=== PATIENT | female | born 1965 | race Caucasian/White ===

== ENCOUNTER 2017-12-11 08:14 | Observation (INO) ==
--- NOTE | 2017-12-11 10:19 | Progress Note ---
[facility] Anesthesia Checklist - Patient Identification Patient Identification: Arm Band, Verbal (Name & ) - Structural Data Admitted From: Home Planned Operative Procedure/s: many Consent for Planned Operative Procedure(s) Verified: Yes Verified Documents: Surgical Consent, History and Physical - NPO Status Verified Time NPO: 00:00 - Chart Verification Results Verified: CBC, BMP - Additional verifications Patient : No Anesthesia Reactions: No Hx Blood Transfusions: No Blood Transfusion Reaction: No Cephalosporin Allergy: No Previous Colonoscopy: No - Cardiovascular Assessment Heart Sounds: S1 & S2 Pulse Strength: Baseline Pulse Rhythm: Regular Peripheral Edema: No - Airway Assessment C-Spine Mobility Assessed: Yes TMJ Mobility Assessed: Yes Dentition: Good Dentition - Neurological Assessment Level of Consciousness: Awake, Alert, Appropriate Hx Seizures: No Numbness or tingling in extremities: No - Anesthesia Plan Anesthesia Risk discussed: Yes Anesthesia Plan: Verified ASA Class: III Anesthesia Type: General [facility] Anesthesia HX I have reviewed the patient's past medical history: Yes Medical History: Reports:: Anxiety, Cerebrovascular Accident, Depression, Gastroesophageal Reflux Disease(GERD), Hypertension Denies:: Cancer, Diabetes Mellitus Type 1, Diabetes Mellitus Type 2, MRSA, Seizures Other Medical History: Reports: Other. Denies: Blood Transfusion Reaction Laterality Cases: Left: Arthroscopy Shoulder Other Surgeries: Yes: Cholecystectomy, Hysterectomy-Total Amputation: No Fractures: Yes *Family Hx:: Coronary Artery Disease, Diabetes, Heart Attack, Hyperlipidemia, Hypertension, Kidney Disease
--- NOTE | 2017-12-11 17:14 | Progress Note ---
[facility] Anesthesia Record Part II Discharge Time: 17:40 Destination: floor PACU nurse assessment reviewed?: Yes Patient Condition:: Good Anesthesia Complications:: None
--- NOTE | 2017-12-11 17:14 | Progress Note ---
[facility] Anesthesia Record Part I Intake, IV Amount: 2,300 Estimated blood loss (mL): 50 Urine output (mL): 800 Blood Pressure: 132/88 SaO2: 96 Pulse Rate: 98 Respiratory Rate: 12 Temperature: 98 F Patient is:: Awake, Stable Stable to PACU at:: 17:10
--- NOTE | 2017-12-11 17:30 | Operative Note ---
Date of procedure: 12/11/17 Pre-op Diagnosis:: 1. Right talus OCD 2. Right talus fracture with possible AVN 3. Right deltoid ligament tear 4. Right ankle synovitis Post-op Diagnosis:: Same Procedure performed:: 1. Right medial malleolus cutdown osteotomy (with ORIF medial malleolus) 2. Right debridement of talus OCD 3. Right allograft talus, open repair of talus fracture 4. Right primary open deltoid ligament repair 5. Right ankle arthrotomy 6. Right ankle synovectomy Surgeon:: Michelle Peterson DPM Inspection And Testing Supervisor(s):: Dr. Pradeep Hyatt MD Anesthesia: regional, LMA Estimated blood loss (mL): 40 Clinical Note:: Right Talus OCD, fracture pre-op: X-rays evaluated by myself. No report given. 3 views of right ankle from and 09/06/17 show right medial talar defect. The MRI right ankle from 08/08/17 reviewed by myself, no report sent. The MRI shows a posterior medial talus, not contained osteochondral defect, with evidence of edema possibly from a fracture of the medial talar dome extending into the shoulder. X-rays, MRI reviewed and discussed with the patient. Conservative treatment discussed has failed x 4 months with worsening pain and symptoms affecting her ability to work and exercise. Continue the fracture boot but further conservative care not curative. We discussed surgery. We discussed in detail debridement and microfracture of the osteochondral defect , and open reduction internal fixation of the old talus fracture. We discussed doing a medial malleolar osteotomy to gain access to the posterior medial lesion. We discussed an ankle scope alone would not provide enough access to the lesion. We did discuss AVN in detail and if this surgery is unsuccessful a second surgery could be performed using either a cadaver talus, beto-talar arthroplasty, custom talus could be considered. We also discussed salvage procedure would include possibly a total ankle replacement versus arthrodesis. Patient's questions were answered. All risks and benefits were discussed including but not limited to: damage to blood vessels and nerves, bleeding, infection, wound complications, delayed, mal or non-union of bone, AVN, post-traumatic arthritis, need for further surgery, need for removal of implant, prolonged swelling of the extremity, prolonged pain, CRPS/RSD, DVT, and anesthetic complications. No guarantees were given. All questions fully answered. The patient verbalized understanding and agreed to proceed with surgery. Consent was obtained. Necessary labs and pre-op testing ordered: CBC, CMP, EKG, CXR. Need medical clearance per Dr. Ousmane Solares. Plan to keep patient for 23 hour observation for pain control (patient lives 3.5 hours away and is moving to [place], [place]). Patient has a fracture boot. She has a walker at home. I recommend she get a rolling knee scooter. Plan surgery for Wedn 12/05/17: Autograft bone harvest, medial malleolar osteotomy, microfracture and debridement of osteochondral defect, open reduction internal fixation talus (possible gastroc recession and ankle arthroscopy) Operative findings:: Attenuated deltoid ligament with partial tear. Synovitis and scar tissue noted in the ankle joint. Spongy talar cartilage with erosion and osteochondral defect noted greater than 1.5 cm. Talus bone marrow edema. Operative note:: On this date and time patient was deemed an appropriate surgical candidate. Pre- op regional popliteal nerve block performed by anesthesia. With informed consent signed, the patient was taken to the operating theater. The patient was positioned supine. General anesthesia was induced. Tourniquet was applied to the right thigh. The right lower extremity was prepped and draped in normal sterile fashion. 1. Right medial malleolus cutdown osteotomy (with ORIF medial malleolus) 2. Right debridement of talus OCD 3. Right allograft talus, open repair of talus fracture 4. Right primary open deltoid ligament repair 5. Right ankle arthrotomy 6. Right ankle synovectomy Right ankle arthrotomy: Attention was directed to the lateral ankle where intra-op fluoroscopy was utilized to edwin anatomical landmarks. A linear incision was made over the lateral ankle gutter. Dissection was carried thru skin and subcutaneous tissue with care taken to maintain surgical hemostasis and safely retract neurovascular structures. Dissection was then carried thru deep fascia to bone. There was blood and synovitis noted in the lateral ankle gutter. No damage to the lateral talar dome. Right ankle synovectomy: There was scar tissue and synovitis noted in the ankle joint. It was debrided and the wound was flushed with copious amounts normal sterile saline. 3-0 Vicryl was then used to reapproximate the subcutaneous layer in an interrupted fashion. 3-0 Nylon was used to reapproximate the skin in an interrupted mattress fashion. Right medial malleolus cutdown osteotomy (with ORIF medial malleolus): Attention was then directed to the medial ankle where intraoperative fluoroscopy was used to edwin out anatomic landmarks. Dissection was carried down over the medial malleolus extending inferiorly and curving over the talus. Dissection was carried through skin and subcutaneous tissue with care taken to maintain surgical hemostasis and safely retract neurovascular structures. Dissection was carried down in a layered fashion through the deep fascia to the bone. The medial malleolus was exposed. A right medical plate was inserted over the medial malleolus and to guidewires for 4.0 millimeter screws were inserted into the medial mall as pre-drill holes for later reapproximation of the tibia. Under intraoperative fluoroscopy the osteotomy site was marked out. The plate was removed. Utilizing saw the osteotomy was cut from superior medial to inferior anterior lateral. Osteotome and mallet was then used to pry the medial malleolus forward removing soft tissue attachments. The medial malleolus was induced to allow for exposure of the talus. Right debridement of talus OCD: There was a osteochondral defect noted on the posterior medial aspect of the talar dome. There were several areas of spongy cartilage with defect noted. Utilizing a 15 blade the spongy cartilage was sharply debrided. The osteochondral defect was fully exposed utilizing curettes. Damaged articular cartilage was removed. The wound was flushed with copious amounts normal sterile saline. Right allograft talus, open repair of talus fracture: At this point intraoperative fluoroscopy was compared with preop CT and MRI. There was a large amount of bone marrow edema underneath the OCD. A drill was used to core down through the osteochondral defect. Hydroset XT was used as a bone void filler to fill in the area of bone marrow edema. This was allowed to harden. Fibrin glue was then applied over the area to seal the Hydroset. Once dry, the Prochondrix CR 17mm graft was measured and cut to size, ~1.5cm and applied into the OCD talus. Fibrin glue was then used to seal the graft in place. Once the graft was firmly adhered in place the wound was flushed with copious amounts of normal sterile saline. Right medial malleolus cutdown osteotomy (with ORIF medial malleolus): At this point attention was directed back to the hinged medial malleolus which was put back in anatomical alignment. The guidewires for the 4.0 millimeters screws was advanced to confirm alignment of the tibia. The right [facility] anatomic medial malleolus plate was then inserted. In standard technique, 3.5 mm locking and nonlocking screws were inserted. There was a small ovoid on the tibia where the osteotomy had been performed. Vitoss was then used as a bone filler to fill in the tibial gap. Once the area was hardened the wound was flushed copious amounts of normal sterile saline. 0-0 and 2-0 Vicryl was then utilized to reapproximate the deep issue in a running fashion. Amnio graft was inserted over the exposed med mall plate. 3-0 Vicryl was then used to reapproximate the subcutaneous layer in an interrupted suture fashion. Right open primary deltoid tear: At this point the deltoid ligament was identified. It was intact but partially torn and attenuated. A 15 blade was used to clean up the scar tissue. Next 2- 0 Vicryl was used to reinforce and repair the deltoid ligament. The wound was flushed with copious amounts of normal sterile saline. Intraoperative fluoroscopy was utilized to check post-reduction AP and lateral views. An external stress test performed. No gross instability, medial clear space or syndesmotic widening. Negative anterior drawer. The wound was flushed with copious amounts normal sterile saline. 2-0 Vicryl was then utilized to reapproximate the deep issue in a running fashion. 3-0 Vicryl was then used to reapproximate the subcutaneous layer in an interrupted fashion. 3-0 Nylon was used to reapproximate the skin in an interrupted mattress fashion. The tourniquet was deflated at 150 minutes and immediate hyperemic response was noted to the digits. The wounds were cleansed. Xerofoam, dry sterile dressing was then applied followed by a below knee modifed Nichole posterior splint. The patient was awoken from anesthesia and transfer to recovery with vital signs stable and neurovascular status intact. Materials: Prochondrix CR graft (talus) Christin Hydroset XT (bone void filler) [place] Vitoss 2.5cc (tibia bone filler) [facility] medial malleolus plate, 3.5mm locking screw x 7, 3.5mm non locking screw x 1 Amnio graft 2 Discharge/Plan: Admit for 23 hour observation for pain control, med mgmt blood pressure. Patient is to maintain splint clean dry and intact. Polar pack/ice behind the knee and elevate on foam ramp or two pillows. Non weight bearing with crutches and walker. Rx given for [place] 7.5, Zofran, Lovenox, Motrin 800mg. Obtain post op films, 3 views ankle. Follow up in one week. Tourniquet time (min): 150 Condition: stable Disposition: observation Specimens:: Right talus cartilage Complications:: None
--- NOTE | 2017-12-11 19:31 | History & Physical Report ---
*Admission Date: 12/11/17 *Chief complaint: Right talus OCD *History of present illness: Mrs. Stover is a 52-year-old female who presents for post op admission of surgery 12/11/17. Patient states June 2017 she was at work and had a misstep. Patient failed conservative care with her steam trap man Dr. Emery was referred to for surgical evaluation. Advanced imaging including x- ray, MRI and CT revealed a osteochondral defect of the talus. Patient underwent surgery today. She lives in [facility] over 5 hours away and was admitted for postop pain control and medical management of her blood pressure. [facility] History I have reviewed the patient's past medical history: Yes Medical History: Reports:: Anxiety, Cerebrovascular Accident, Depression, Gastroesophageal Reflux Disease(GERD), Hypertension Denies:: Cancer, Diabetes Mellitus Type 1, Diabetes Mellitus Type 2, MRSA, Seizures Other Medical History: Reports: Other. Denies: Blood Transfusion Reaction Laterality Cases: Left: Arthroscopy Shoulder Other Surgeries: Yes: Cholecystectomy, Hysterectomy-Total Amputation: No Fractures: Yes - *Social History Educational Level: Completed College Smoking Status: Never smoker Alcohol Intake: current Alcohol Intake Frequency:: holidays/special occasions only Occupational Status: employed Housing: house Household Members: spouse - Psychiatric History Expresses thoughts of harming self/others: None Suicide Plan Description: No Plan Pschychiatric History:: Reports:: Anxiety, Depression *Family Hx:: Coronary Artery Disease, Diabetes, Heart Attack, Hyperlipidemia, Hypertension, Kidney Disease Review of Systems - Review of Systems Review of systems:: pertinent systems reviewed and negative unless documented below - Constitutional Denies anorexia - Eyes Denies blurry vision - ENT Denies abnormal hearing - *Cardiovascular Denies chest pain, Denies shortness of breath - *Respiratory Denies shortness of breath - *Gastrointestinal Denies abdominal pain - *Genitourinary Denies abnormal periods - *Musculoskeletal Reports joint swelling, Reports limited joint movement (right ankle) - Integumentary/Breasts Denies hair loss - *Neurologic Denies abnormal walking, Denies abnormal movements - Psychiatric Reports anxiety - Allergic/Immunologic Reports GI upset with certain foods Meds Home Medications Medication Instructions Recorded Confirmed Type escitalopram 20 mg tablet 20 mg PO ONCE 18 12/11/17 History levocetirizine 5 mg tablet 5 mg PO QHS 0712/11/17 History losartan 100 1 tab PO DAILY 11/06/17 12/11/17 History mg-hydrochlorothiazide 12.5 mg tablet pantoprazole 40 mg tablet,delayed 40 mg PO HS 11/06/17 12/11/17 History release ranitidine 300 mg capsule 300 mg PO BID 11/06/17 12/11/17 History tizanidine 4 mg capsule 4 mg PO TID PRN 11/06/17 12/11/17 History Ergocalciferol (Vitamin D2) 400 unit PO DAILY 12/10/17 12/10/17 History [Vitamin D] Ibuprofen [Ibuprofen 800mg Tab] 800 mg PO Q8HP PRN 12/10/17 12/10/17 History Lysine HCl [l-Lysine] 500 mg PO DAILY 12/10/17 12/11/17 History Docusate Calcium 240 mg PO DAILY 12/11/17 12/11/17 History Allergies Allergy/AdvReac Type Severity Reaction Status Date / Time duloxetine [From Cymbalta] Allergy Verified 12/11/17 09:46 Penicillins Allergy Verified 12/11/17 09:46 Exam Vital signs and Labs for Last 24 Hours: Temp Pulse Resp BP Pulse Ox 98.0 F 84 18 151/79 96 12/11/17 18:08 12/11/17 18:08 12/11/17 18:08 12/11/17 18:08 12/11/17 18:08 I & O for Last 24 hours: Intake & Output 12/09/17 12/10/17 12/11/17 12/12/17 11:59 11:59 11:59 11:59 Intake Total 2375 / 2375 Balance 2375 / 2375 Weight 235 lb 236 lb 9 oz - *Routine HEENT Exam Head: Present: normocephalic Eye: Present: PERRL ENT: Present: mucous membranes moist - *Routine Neck Exam Present: supple, full ROM - *Routine Respiratory Exam Present: CTA bilaterally - *Routine Cardiovascular Exam Present: RRR, Normal S1, Normal S2 - *Routine Abdominal Exam Present: soft. Absent: distended, guarding - *Routine Rectal Exam Patient deferred: visual exam - *Routine Exam Patient deferred: external exam - *Routine Extremities Exam Present: pulses intact, normal capillary refill. Absent: edema, calf tenderness - *Routine Skin Exam Present: intact. Absent: erythema, pallor - *Routine Neurological Exam Present: alert, oriented X3, moving all extremities - Detailed Lower Extremity Exam Comments: Posterior splint clean dry and intact to the right lower extremity. No calf or thigh pain noted bilaterally. Capillary fill time within normal limits. Palpable pedal pulses. Skin temperature within normal limits. Decreased light touch sensation secondary to regional block. Decreased motor function secondary to block. Assessment and Plan (1) Osteochondritis dissecans of right talus Current visit: Yes Status: Acute Category: Medical Code(s): M93.271 - Osteochondritis dissecans, right ankle and joints of right foot (2) Right ankle pain Current visit: Yes Status: Acute Category: Medical Code(s): M25.571 - Pain in right ankle and joints of right foot (3) Synovitis of right ankle Current visit: Yes Status: Acute Category: Medical Code(s): M65.9 - Synovitis and tenosynovitis, unspecified - Assessment and plan all Dx Assessment and Plan for all problems:: S/p right medial malleolar cutdown osteotomy (with ORIF medial mall), debridement of talus OCD, graft of talus, ankle synovectomy DOS: 12/11/17 Patient seen and evaluated postoperatively. Patient is resting comfortably in bed with no new complaints. 1. Plan for discharge tomorrow morning 2. Patient has crutches, rolling the scooter 3. Nonweightbearing to right lower extremity, maintain splint clean dry and intact to the RLE 4. Plan for 1 session of PT for gait training prior to discharge in the morning 5. Patient education and DVT prophylaxis for Lovenox 6. Rx [place] 7.5 on chart 7. e-Rx Zofran, Motrin, Lovenox 8. Incentive spirometer and Cryo/Cuff education 9. Plan to see patient in the a.m
[2017-12-12 06:33] LABS: Anion Gap 7.8 mEq/L (5-15); Bilirubin,Total 0.4 mg/dL (0.2-1.0); Calcium 7.9 mg/dL (8.5-10.1); Globulin 3.1 gm/dl (1.3-3.2); Potassium 3.8 mmoL/L (3.5-5.1); Total Protein,Serum 6.1 gm/dL (6.4-8.2)
--- NOTE | 2017-12-12 07:11 | Pharmacy Consult Notes ---
[facility] Pharmacy VTE Monitoring - Patient Demographics Admission date: 12/11/17 Report Date: 12/12/17 Time: 07:10 Allergies/Adverse Reactions: Patient Allergies duloxetine [From Cymbalta] Allergy (Verified 12/11/17 09:46) Penicillins Allergy (Verified 12/11/17 09:46) Height: 1.73 m Weight: 107.303 kg Patient Problems: Current Active Problems Osteochondritis dissecans of right talus (Acute) Right ankle pain (Acute) Synovitis of right ankle (Acute) - VTE Risk Labs: VTE Related Lab Results BUN 8 mg/dL (7-18) 12/12/17 05:22 Creatinine 0.73 mg/dL (0.55-1.02) 12/12/17 05:22 Estimated Creat Clear 156 mL/min (0-300) 12/12/17 05:22 Was VTE Risk Assessment Performed: Yes VTE Score: 2 VTE Risk Level: Very Low Risk Clinical Trial Participant: No - Prophylaxis VTE Prophylaxis Ordered?: Yes Types of VTE Prophylaxis: Pharmacological Pharmacologic Type: Enoxaparin
[2017-12-12 07:49] VITALS: BP 108/72
--- NOTE | 2017-12-12 08:19 | Consult Report ---
*Admission Date: 12/11/17 *Chief complaint: Consultation for hypertension *History of present illness: Mrs. Stover is a 52-year-old female who presents for post op admission of surgery 12/11/17. Patient states June 2017 she was at work and had a misstep. Patient failed conservative care with her design technology teacher Dr. Emery was referred to for surgical evaluation. Advanced imaging including x- ray, MRI and CT revealed a osteochondral defect of the talus. Patient underwent surgery today. She lives in [facility] over 5 hours away and was admitted for postop pain control and medical management of her blood pressure. Patient has a long-standing history of hypertension, has been on angiotensin receptor geno/HCTZ combination therapy for quite a while. [facility] History I have reviewed the patient's past medical history: Yes Medical History: Reports:: Anxiety, Cerebrovascular Accident, Depression, Gastroesophageal Reflux Disease(GERD), Hypertension Denies:: Cancer, Diabetes Mellitus Type 1, Diabetes Mellitus Type 2, MRSA, Seizures Other Medical History: Reports: Other. Denies: Blood Transfusion Reaction Laterality Cases: Left: Arthroscopy Shoulder Other Surgeries: Yes: Cholecystectomy, Hysterectomy-Total Amputation: No Fractures: Yes - *Social History Educational Level: Completed College Smoking Status: Never smoker Alcohol Intake: current Alcohol Intake Frequency:: holidays/special occasions only Occupational Status: employed Housing: house Household Members: spouse - Psychiatric History Expresses thoughts of harming self/others: None Suicide Plan Description: No Plan Pschychiatric History:: Reports:: Anxiety, Depression *Family Hx:: Coronary Artery Disease, Diabetes, Heart Attack, Hyperlipidemia, Hypertension, Kidney Disease Review of Systems - Review of Systems Review of systems:: pertinent systems reviewed and negative unless documented below - Constitutional Denies anorexia, Denies body ache(s), Denies chills - Eyes Denies blind spots - ENT Denies abnormal hearing, Denies bleeding gums, Denies change in voice - *Cardiovascular Denies chest pain, Denies chest pain at rest, Denies chest pain with activity, Denies shortness of breath, Denies shortness of breath with activity, Denies irregular heart rhythm, Denies shortness of breath when lying down - *Respiratory Denies change in phlegm color, Denies chest congestion, Denies cough - *Gastrointestinal Denies abdominal pain - *Neurologic Denies abnormal walking, Denies abnormal hearing, Denies abnormal movements Meds Home Medications Medication Instructions Recorded Confirmed Type escitalopram 20 mg tablet 20 mg PO ONCE 11/06/17 12/11/17 History levocetirizine 5 mg tablet 5 mg PO QHS 11/06/17 12/11/17 History losartan 100 1 tab PO DAILY 11/06/17 12/11/17 History mg-hydrochlorothiazide 12.5 mg tablet pantoprazole 40 mg tablet,delayed 40 mg PO HS 11/06/17 12/11/17 History release ranitidine 300 mg capsule 300 mg PO BID 11/06/17 12/11/17 History tizanidine 4 mg capsule 4 mg PO TID PRN 11/06/17 12/11/17 History Ergocalciferol (Vitamin D2) 400 unit PO DAILY 12/10/17 12/10/17 History [Vitamin D] Ibuprofen [Ibuprofen 800mg Tab] 800 mg PO Q8HP PRN 12/10/17 12/10/17 History Lysine HCl [l-Lysine] 500 mg PO DAILY 12/10/17 12/11/17 History Docusate Calcium 240 mg PO DAILY 12/11/17 12/11/17 History Allergies Allergy/AdvReac Type Severity Reaction Status Date / Time duloxetine [From Cymbalta] Allergy Verified 12/11/17 09:46 Penicillins Allergy Verified 12/11/17 09:46 Exam Vital signs and Labs for Last 24 Hours: Temp Pulse Resp BP Pulse Ox 97.7 F 71 18 108/72 99 12/12/17 07:47 12/12/17 07:47 12/12/17 07:47 12/12/17 07:47 12/12/17 07:47 Laboratory Results - last 24 hr 12/12/17 05:22: Sodium 137, Potassium 3.8, Chloride 104, Carbon Dioxide 29, Anion Gap 7.8, BUN 8, Creatinine 0.73, Estimated Creat Clear 156, Estimated GFR 84, Est GFR ( Amer) 102, Glucose 156 H, Calcium 7.9 L, Total Bilirubin 0.4, AST 26, ALT 40, Alkaline Phosphatase 88, Total Protein 6.1 L, Albumin 3.0 L , Globulin 3.1, Albumin/Globulin Ratio 1.0 L I & O for Last 24 hours: Intake & Output 12/09/17 12/10/17 12/11/1718 11:59 11:59 11:59 11:59 Intake Total 3155 / 3155 Output Total 2700 / 2700 Balance 455 / 455 Weight 235 lb 236 lb 9 oz Narrative: Oropharynx clear, patient's alert, oriented. No cranial nerve deficits. Lungs are clear, heart rate regular. No edema. Foot damp per podiatry. Internal Medicine - CN: Reslt - Labs CBC & Chem 7: 12/12/17 05:22 Labs: BMP 12/12/17 05:22 Sodium 137 Potassium 3.8 Chloride 104 Carbon Dioxide 29 BUN 8 Creatinine 0.73 Glucose 156 H Calcium 7.9 L Liver Function 12/12/17 Range/Units 05:22 Total Bilirubin 0.4 (0.2-1.0) mg/dL AST 26 (15-37) U/L ALT 40 (12-78) U/L Alkaline Phosphatase 88 (46-116) U/L Albumin 3.0 L (3.4-5.0) gm/dL Assessment and Plan (1) Osteochondritis dissecans of right talus Current visit: Yes Status: Acute Category: Medical Code(s): M93.271 - Osteochondritis dissecans, right ankle and joints of right foot (2) Right ankle pain Current visit: Yes Status: Acute Category: Medical Code(s): M25.571 - Pain in right ankle and joints of right foot (3) Synovitis of right ankle Current visit: Yes Status: Acute Category: Medical Code(s): M65.9 - Synovitis and tenosynovitis, unspecified (4) Hypertension Current visit: Yes Status: Acute Category: Medical Code(s): I10 - Essential (primary) hypertension Minimal elevations in blood pressure postoperatively from pain issues. Now is well controlled. No objection to discharge home. Would not change any blood pressure regimen at this point.
--- NOTE | 2017-12-12 08:24 | Discharge Summary ---
General - General Admission date:: 12/11/17 Discharge date: 12/12/17 HPI HPI: Mrs. Stover is a 52-year-old female who presents for post op admission of surgery 12/11/17. Patient states June 2017 she was at work and had a misstep. Patient failed conservative care with her laboratory technologist Dr. Emery was referred to for surgical evaluation. Advanced imaging including x- ray, MRI and CT revealed a osteochondral defect of the talus. Patient underwent surgery today. She lives in [facility] over 5 hours away and was admitted for postop pain control and medical management of her blood pressure. Patient has a long-standing history of hypertension, has been on angiotensin receptor geno/HCTZ combination therapy for quite a while. Hospital Course Hospital Course: Patient was admitted 12/11/17 for postop pain control and blood pressure management after surgery. Hospital course uneventful. Fluid intake and output within normal limits. Blood pressure well controlled throughout postop course. Pain control with regional block. Objective Vital signs: Temp Pulse Resp BP Pulse Ox 97.7 F 71 18 108/72 99 12/12/17 07:47 12/12/17 07:47 12/12/17 07:47 12/12/17 07:47 12/12/17 07:47 - *Routine HEENT Exam Head: Present: normocephalic Eye: Present: PERRL ENT: Present: mucous membranes moist - *Routine Neck Exam Present: supple. Absent: JVD - *Routine Respiratory Exam Present: CTA bilaterally - *Routine Cardiovascular Exam Present: RRR - *Routine Abdominal Exam Present: soft. Absent: tenderness - *Routine Rectal Exam Patient deferred: visual exam - *Routine Exam Patient deferred: external exam - *Routine Extremities Exam Present: cyanosis, normal capillary refill. Absent: calf tenderness - *Routine Skin Exam Present: intact - *Routine Neurological Exam Present: alert, oriented X3, CN II-XII intact - Detailed Lower Extremity Exam Comments: Splint clean dry and intact to the right lower knee. Capillary fill time within normal limits. Motor function decreased secondary to regional block. Touch sensation not at baseline decreased secondary to regional block. No calf or thigh pain noted bilaterally. Skin temp and color within normal limits. Results Labs on day of discharge: Labs from last 24 hours 12/12/17 05:22 Sodium 137 Potassium 3.8 Chloride 104 Carbon Dioxide 29 Anion Gap 7.8 BUN 8 Creatinine 0.73 Estimated Creat Clear 156 Estimated GFR 84 Est GFR ( Amer) 102 Glucose 156 H Calcium 7.9 L Total Bilirubin 0.4 AST 26 ALT 40 Alkaline Phosphatase 88 Total Protein 6.1 L Albumin 3.0 L Globulin 3.1 Albumin/Globulin Ratio 1.0 L DS: Diagnosis - Discharge Diagnosis (1) Osteochondritis dissecans of right talus Status: Acute (2) Right ankle pain Status: Acute (3) Synovitis of right ankle Status: Acute (4) Hypertension Status: Acute Discharge Plan - Patient Discharge Instructions ACTIVITY: Continue current activity, Up with assistance DIET: advance to your usual diet Additional Instructions: Patient is to maintain dressing clean dry and intact. Ice (cryo cuff polar pack) behind the right knee and elevate on two pillows. Non weight bearing to the right lower extremity with DME assistance (walker, rolling knee scooter). Continue incentive spirometer q1h. Rx for Trosper 7.5/25 on chart. e-Rx given for Lovenox, Zofran and Motrin 800mg. Follow up in one week as scheduled - Follow up Plan Follow up with: Michelle Peterson DPM [Staff Physician] - Disposition: Home, Self-Long Term Medications: Home Medications Medication Instructions Recorded Confirmed Type escitalopram 20 mg tablet 20 mg PO ONCE 11/06/17 12/11/17 History levocetirizine 5 mg tablet 5 mg PO QHS 11/06/17 12/11/17 History losartan 100 1 tab PO DAILY 11/06/17 12/11/17 History mg-hydrochlorothiazide 12.5 mg tablet pantoprazole 40 mg tablet,delayed 40 mg PO HS 11/06/17 12/11/17 History release ranitidine 300 mg capsule 300 mg PO BID 11/06/17 12/11/17 History tizanidine 4 mg capsule 4 mg PO TID PRN 11/06/17 12/11/17 History Ergocalciferol (Vitamin D2) 400 unit PO DAILY 12/10/17 12/10/17 History [Vitamin D] Ibuprofen [Ibuprofen 800mg Tab] 800 mg PO Q8HP PRN 12/10/17 12/10/17 History Lysine HCl [l-Lysine] 500 mg PO DAILY 12/10/17 12/11/17 History Docusate Calcium 240 mg PO DAILY 12/11/17 12/11/17 History Prescriptions/Medication Reconciliation: No Action losartan 100 mg-hydrochlorothiazide 12.5 mg tablet 1 tab PO DAILY pantoprazole 40 mg tablet,delayed release 40 mg PO HS ranitidine 300 mg capsule 300 mg PO BID tizanidine 4 mg capsule 4 mg PO TID PRN PRN Reason: pain ondansetron HCl 4 mg tablet 4 mg PO Q6H PRN #30 tab PRN Reason: nausea enoxaparin 40 mg/0.4 mL subcutaneous syringe 40 mg SUB-Q QDAY 20 Days #8 ml ibuprofen 800 mg tablet 800 mg PO BID #60 tab escitalopram 20 mg tablet 20 mg PO ONCE levocetirizine 5 mg tablet 5 mg PO QHS Lysine HCl [l-Lysine] 500 mg PO DAILY Ibuprofen [Ibuprofen 800mg Tab] 800 mg PO Q8HP PRN PRN Reason: Moderate Pain Ergocalciferol (Vitamin D2) [Vitamin D] 400 unit PO DAILY Docusate Calcium 240 mg PO DAILY
== END 2017-12-12 11:20 | disposition home or self-care (01) ==
LOC: 2ND 08:14 → OR 08:14
PROVIDERS: ADMIT Podiatrist; ATTEND Podiatrist

== ENCOUNTER → 2018-06-25 15:44 | Outpatient (CLI) | payer SELFPAY ==
--- NOTE | 2018-06-25 15:47 | XR_ITS ---
XR ankle wt bearing RT min 3V HISTORY: Follow-up surgery, postop ankle pain ITS.REASON: post-op ORDERING PHYSICIAN: Michelle Peterson DPM PATIENT AGE: 52 years COMPARISON is made to multiple outside exams the last of which dates 03/26/2018: FINDINGS: There is a medial bone plate along the distal tibia transfixed by multiple screws. There is an oblique fracture of the distal tibia nondisplaced. Fracture line is more prominent along the lateral aspect. Mild prominent zone of lucency around the third from top tibial bone plate screw which could be related to some underlying loosening or infection. A longitudinal area of sclerosis is noted along the medial aspect of the talus. A mixed area of lucency with sclerosis is present along the medial aspect of the talar dome suggesting an osteochondral defect with possible bone graft. Please correlate with patient's surgical history. There is some bony bridging between the distal tibia and fibula. IMPRESSION: 1. Postsurgical changes with possible loosening or infection of the third from top tibial bone plate screw 2. Ununited distal tibial fracture laterally. 3. Suspect prior bone graft of an osteochondral defect of the talar dome medially
== END ==
PROVIDERS: Visit Provider Podiatrist
DX: Z98.890 Other specified postprocedural states (principal)
CPT/HCPCS: 73610

== ENCOUNTER → 2018-09-03 13:46 | Outpatient (CLI) | payer SELFPAY ==
--- NOTE | 2018-09-03 13:54 | XR_ITS ---
XR ankle wt bearing RT min 3V HISTORY: Follow-up surgery ITS.REASON: post-op ORDERING PHYSICIAN: Michelle Peterson DPM PATIENT AGE: 53 years Comparison: 06/25/2018 FINDINGS: Status post ORIF distal tibia with medial bone plate. There is persistent fracture line oblique in nature with the fracture line most prominent laterally and anteriorly consistent with incomplete bony union. There is prominent callus formation however, fracture line is still visible. There is a zone of lucency around the third screw from the top is somewhat less apparent on today's exam. IMPRESSION: Increasing callus formation but persistent fracture line visible status post ORIF distal tibia as described above.
== END ==
PROVIDERS: Visit Provider Podiatrist
DX: Z98.890 Other specified postprocedural states (principal)
CPT/HCPCS: 73610

== ENCOUNTER → 2018-11-26 12:15 | Outpatient (CLI) | payer SELFPAY ==
--- NOTE | 2018-11-26 12:17 | CT_ITS ---
CT ankle RT wo con INDICATION: Continued pain and swelling medially, delayed union, peroneal tendinitis, [place] tendinitis, ankle instability, osteochondritis dissecans, chronic pain ITS.REASON: pain ORDERING PHYSICIAN: Michelle Peterson DPM PATIENT AGE: 53 years COMPARISON: None TECHNIQUE: Contrast Used: Oral Contrast: Axial images were obtained. Sagittal and coronal reformatted images are reviewed as well. All CT scans at the facility use one or more dose reduction, viz: automated exposure control, ma/kV adjustment per patient size (including targeted exams where dose is matched to indication, i.e. head), or iterative reconstruction technique. FINDINGS: Status post prior placement of lateral bone plate along the distal tibia medially. With osteotomy noted at the distal tibia. There is persistent lucency along the lateral aspect of the osteotomy site and along the articular surface of the distal tibia laterally with the osteotomy extending into the articular surface of the distal tibia laterally. Multiple screws are present stabilizing a medial bone plate. The posterior screw second up from the distal aspect of the tibia does appear to extend just to the subarticular region of the distal tibia with a small fracture line extending into the articular surface at the tip of the screw. Just lateral to this there is an additional small fracture line which involves the articular surface of the distal tibia. As along the anterior aspect of the distal tibia. There are mild osteoarthritic changes of the tibiotalar joint. There is an old defect of the talar dome has hyperdensity within the defect consistent with prior surgery and bone cement placement for the area of osteonecrosis. Air is a nondisplaced somewhat comminuted fracture of the articular surface of the distal tibia centrally and laterally. Small ankle joint effusion. IMPRESSION: 1. Prior ORIF with osteotomy of the distal tibia with bone cement at the previous area of osteonecrosis of the talar dome with some irregularity of the talar dome at this region. The osteotomy has incompletely healed laterally. 2. There is a nondisplaced comminuted fracture involving the articular surface of the distal tibia centrally and laterally extending into the ununited osteotomy site 3. One of the screws in the medial bone plate does appear to extend to the articular surface of the distal tibia. 4. Mild osteoarthritic changes of the ankle joint small ankle joint effusion IMPRESSION:
== END ==
PROVIDERS: Visit Provider Podiatrist
DX: M25.571 Pain in right ankle and joints of right foot (principal); M93.271 Osteochondritis dissecans, right ankle and joints of right foot
CPT/HCPCS: 73700

== ENCOUNTER → 2019-03-04 13:12 | Outpatient (CLI) | payer SELFPAY ==
--- NOTE | 2019-03-04 13:20 | XR_ITS ---
PROCEDURE: XR FOOT WT BEARING RT 3V CLINICAL INDICATION: ankle pain Pain COMPARISON: XR FOOT COMP MIN 3 VIEWS RIGHT from 09/06/2017 XR FOOT COMP MIN 3 VIEWS RIGHT from 12/31/2017 XR FOOT COMP MIN 3 VIEWS RIGHT from 01/24/2018 XR FOOT COMP MIN 3 VIEWS RIGHT from 03/26/2018 FINDINGS: No fracture or dislocation. No lytic or blastic change. There is normal mineralization. The joint spaces are well-preserved. No significant degenerative/arthritic changes. No erosive changes evident. Other findings:Postsurgical changes of the ankle IMPRESSION: Negative right foot Dictated by: Simon Ca MD 03/04/2019 15:22 Electronically signed by Simon Ca MD in [facility] 03/04/2019 15:22
--- NOTE | 2019-03-04 13:20 | XR_ITS ---
PROCEDURE: XR ANKLE WT BEARING RT MIN 3V CLINICAL INDICATION: ankle pain Prior ORIF, pain COMPARISON: XR ANKLE COMP MIN 3 VIEWS RIGHT from 01/24/2018 XR ANKLE COMP MIN 3 VIEWS RIGHT from 02/11/2018 XR ANKLE COMP MIN 3 VIEWS RIGHT from 03/26/2018 [id number] XR ankle wt bearing RT min 3V from 06/25/2018 FINDINGS: The there is a medial bone plate of the distal tibia stabilizing a nondisplaced distal tibial fracture. The bone plate is in good position. There is a persistent lucency at the fracture site however, there is abundant callus formation at the fracture posteriorly and anteriorly. There are degenerative changes at the ankle. IMPRESSION: Status post ORIF healing distal tibial fracture with good alignment. Fracture line remains visible Dictated by: Simon Ca MD 03/04/2019 15:21 Electronically signed by Simon Ca MD in [facility] 03/04/2019 15:21
== END ==
PROVIDERS: Visit Provider Podiatrist
DX: M25.571 Pain in right ankle and joints of right foot (principal)
CPT/HCPCS: 73610; 73630

== ENCOUNTER → 2019-07-01 13:13 | Outpatient (CLI) | payer SELFPAY ==
--- NOTE | 2019-07-01 13:18 | XR_ITS ---
PROCEDURE: XR FOOT WT BEARING RT 3V CLINICAL INDICATION: foot/ ankle pain COMPARISON: XR FOOT COMP MIN 3 VIEWS RIGHT from 12/31/2017 XR FOOT COMP MIN 3 VIEWS RIGHT from 01/24/2018 XR FOOT COMP MIN 3 VIEWS RIGHT from 03/26/2018 XR FOOT WT BEARING RT 3V from 03/04/2019 FINDINGS: No fracture or dislocation. No lytic or blastic change. There is normal mineralization. There are mild osteoarthritic changes at the 1st MTP joint. Prominent calcaneal spurs noted at 13 mm. Other findings:None. IMPRESSION: No change with no acute finding Dictated by: Simon Ca MD 07/01/2019 15:05 Electronically signed by Simon Ca MD in [facility] 07/01/2019 15:05
--- NOTE | 2019-07-01 13:18 | XR_ITS ---
PROCEDURE: XR ANKLE WT BEARING RT MIN 3V CLINICAL INDICATION: foot/ ankle pain COMPARISON: XR ANKLE COMP MIN 3 VIEWS RIGHT from 02/11/2018 XR ANKLE COMP MIN 3 VIEWS RIGHT from 03/26/2018 [id number] XR ankle wt bearing RT min 3V from 06/25/2018 XR ANKLE WT BEARING RT MIN 3V from 03/04/2019 FINDINGS: Status post ORIF of the distal tibia. A medial bone plate is in place with persistent lucency noted at the fracture site. Prominent calcaneal spur is noted. There are mild degenerative changes of the ankle joint. IMPRESSION: Prior ORIF distal tibia with degenerative changes. No change with no acute finding Dictated by: Simon Ca MD 07/01/2019 15:04 Electronically signed by Simon Ca MD in [facility] 07/01/2019 15:04
== END ==
PROVIDERS: Visit Provider Podiatrist
DX: M79.671 Pain in right foot (principal)
CPT/HCPCS: 73610; 73630

== ENCOUNTER → 2019-10-21 12:46 | Outpatient (CLI) | payer SELFPAY ==
--- NOTE | 2019-10-21 12:46 | MR_ITS ---
PROCEDURE: MR ANKLE RT WO/W CON CLINICAL INDICATION: chronic ankle pain Prior surgery with bruising and swelling with instability COMPARISON: ANKRTWO CT ankle RT wo con from 11/26/2018 TECHNIQUE: Routine multiplanar multi echo sequences are performed without and with gadolinium enhancement. FINDINGS: The tibiofibular syndesmosis appears intact. There is some increased signal intensity involving the anterior tibiofibular ligament. Significant artifact is present within a medial bone plate within the distal tibia. Prominent soft tissue swelling is noted. The ATFL is not identified consistent with tear of the ATFL. The PT FL does appear intact. Postsurgical changes are present from prior core decompression the medial malleolar region. There is some cortical regularity at this region the medial talus at the articular surface suggesting residual or recurrence osteochondrosis dissecans. There is also a defect along the anterior and lateral aspect of the neck of the talus which measures approximately 1 cm and could represent an additional area of osteochondrosis dissecans versus sub chondral cystic change. The peroneal tendons appear intact. There is edema along the lateral aspect of the ankle and foot. The deltoid ligament is not identified. There is significant artifact in this area however. Tear of the deltoid ligament is considered. There is bone marrow edema of the talus medially. The Achilles tendon appears intact. The extensor tendons have an unremarkable appearance. IMPRESSION: 1. Significant artifact from postsurgical changes and the medial tibial bone plate with soft tissue edema. 2. Postsurgical change of the talar dome medially from core decompression with cortical regularity at the talar dome medially which could be due to residual or recurrence osteochondrosis dissecans. The cortical defect is approximately 7 mm. Bone marrow edema involves the medial aspect of the talus. 3. Localized bone marrow edema of the talar neck laterally with cortical irregularity also suggestive of osteochondrosis 4. Suspected tear of the ATFL and deltoid ligament with intact appearing interosseous ligament of the tib fib Dictated by: Simon Ca MD 10/21/2019 17:57 Electronically signed by Simon Ca MD in [facility] 10/21/2019 17:57
== END ==
PROVIDERS: Visit Provider Podiatrist
DX: M25.571 Pain in right ankle and joints of right foot (principal); M25.371 Other instability, right ankle; M25.871 Other specified joint disorders, right ankle and foot; M76.71 Peroneal tendinitis, right leg; M93.271 Osteochondritis dissecans, right ankle and joints of right foot; M96.89 Other intraoperative and postprocedural complications and disorders of the musculoskeletal system
CPT/HCPCS: 73723; A9576

== ENCOUNTER → 2020-06-16 12:32 | Outpatient (CLI) | payer MEDICARE, SELFPAY ==
--- NOTE | 2020-06-16 13:16 | US_ITS ---
APPROVED REPORT Exam Type: Lower Extremity Segmental Pressures Trimmer Sorter: Josi Rousseau RVT Indications Claudication: Bilaterally Rest Pain: Bilaterally Numbness/Tingling History of Smoking PRE-OP ANKLE SURGERY Risk Factors Hypertension Hyperlipidemia Pressures/Indices Right Indices Left Indices Brachial 148.00 mmHg Brachial 130.00 mmHg Low Thigh 158.00 mmHg 1.07 Low Thigh 164.00 mmHg 1.11 Calf 165.00 mmHg 1.11 Calf 154.00 mmHg 1.04 Ankle(PT) 171.00 mmHg 1.16 Ankle(PT) 164.00 mmHg 1.11 Ankle(DP) 161.00 mmHg 1.09 Ankle(DP) 147.00 mmHg 0.99 Digit 88.00 mmHg 0.59 Digit 67.00 mmHg 0.45 Findings RT IVAN:1.16 LT IVAN:1.11 RT TBI:0.59 LT TBI:0.45 NORMAL PULSES BILATERAL NORMAL WAVEFORMS BILATERAL Conclusion RT IVAN:1.16 LT IVAN:1.11 RT TBI:0.59 LT TBI:0.45 NORMAL PULSES BILATERAL NORMAL WAVEFORMS BILATERAL Electronically signed by : Simon Ca MD 06/16/2020 17:36:50
--- NOTE | 2020-06-16 14:07 | CT_ITS ---
PROCEDURE: CT ANKLE RT WO CON CLINICAL HISTORY: TAR protocol Surgical planning for ankle replacement-TAR Pain constantly Swelling off and on COMPARISON: CR XR ANKLE COMP MIN 3 VIEWS RIGHT from 03/26/2018 CR XR ANKLE WT BEARING RT MIN 3V from 07/01/2019 TECHNIQUE: Axial images obtained with sagittal and coronal reformats. All CT scans at the facility use one or more dose reduction, viz: automated exposure control, ma/kV adjustment per patient size (including targeted exams where dose is matched to indication, i.e. head), or iterative reconstruction technique. FINDINGS: Axial images are obtained from the distal femur through the ankle. Mild osteoarthritic change of the knee. There is a medial tibial bone plate present which is in good position. A prominent lucent defect is present within the distal tibia which may be postsurgical. This measures 3 cm transverse and 2 cm cephalad caudad and 2.5 cm AP. This extends to and involves the distal articular surface of the tibia with some cortical irregularity of the distal tibial surface. A cortical defect involves the medial aspect of the talar dome measuring 12 mm transverse and 13 mm AP. This is consistent with a prominent osteochondral defect. A linear area of increased density is present extending from this area into the distal talus posteriorly consistent with prior surgery. There is mild flattening of the talar dome with osteoarthritic change at the ankle joint. Mild osteoarthritis involves the anterior and posterior subtalar joint. Osteoarthritic changes are also present at the talonavicular joint. Subchondral cystic areas present at the talus neck measuring 9 mm. Mild osteoarthritic changes are also present at the 1st MTP joint. No abnormal fluid collections or soft tissue mass is apparent. IMPRESSION: 1. Prior ORIF distal tibia with a prominent defect at the distal aspect of the tibia which may be postsurgical in nature with involvement of the articular surface. 2. Osteochondral defect of the medial talar dome with postsurgical changes at this area. 3. Osteoarthritic changes of the ankle and foot Dictated by: Simon Ca MD 06/17/2020 11:32 Simon Ca MD in [facility] 06/17/2020 11:32
== END ==
PROVIDERS: Visit Provider Podiatrist
DX: M19.071 Primary osteoarthritis, right ankle and foot; R09.89 Other specified symptoms and signs involving the circulatory and respiratory systems
CPT/HCPCS: 73700; 93923

== ENCOUNTER → 2020-06-17 12:24 | Outpatient (CLI) | payer MEDICARE, SELFPAY ==
[2020-06-17 13:02] LABS: Hemoglobin A1C 6.3 % (4.0-6.0)
[2020-06-17 13:04] LABS: Basophils # 0.1 K/mm3 (0-0.2); Basophils % 0.6 % (0.1-2.0); Eosinophils # 0.2 K/mm3 (0.0-0.4); Eosinophils % 1.1 % (0.1-12.0); Hemoglobin 13.7 g/dL (12.2-16.2); Lymphocytes # 3.4 K/mm3 (0.7-4.5); Lymphocytes % 25.4 % (10-50); Mean Corpuscular HGB Conc 31.1 g/dL (31.8-35.4); Mean Corpuscular Hemoglobin 27.2 pg (27.0-31.2); Mean Corpuscular Volume 87.5 fl (81-99); Mean Platelet Volume 7.5 fl (7.4-10.4); Monocytes # 0.8 K/mm3 (0.1-1.0); Monocytes % 6.2 % (1.7-9.3); Neutrophils % 66.6 % (37.0-80.0); Platelet Count 402 K/mm3 (142-424); Red Blood Count 5.02 M/mm3 (4.20-5.40); Red Cell Distribution Width 13.7 % (11.5-17.5); White Blood Count 13.5 K/mm3 (4.8-10.8)
[2020-06-17 13:22] LABS: Chloride 101 mmol/L (98-107); Potassium 4.4 mmoL/L (3.5-5.1); Sodium 140 mmol/L (136-145)
[2020-06-17 13:24] LABS: Blood Urea Nitrogen 17 mg/dl (7-17); Estimated Glomerular Filt Rate 88 ml/min (>60); GFR (African American) 106 ML/MIN (>60)
[2020-06-17 13:25] LABS: Alanine Aminotransferase 24 U/L (12-78); Albumin Level 4.8 g/dl (3.5-5.0); Albumin/Globulin Ratio 1.5 (1.1-1.8); Alkaline Phosphatase 101 U/L (38-126); Anion Gap 10.4 mEq/L (5-15); Aspartate Amino Transferase 22 U/L (14-36); Bilirubin,Total 0.7 mg/dl (0.2-1.3); Calcium 10.1 mg/dl (8.4-10.2); Carbon Dioxide 33 mmol/L (22.0-30.0); Globulin 3.1 g/dL (1.3-3.2); Glucose 62 mg/dl (74-100); Total Protein,Serum 7.9 g/dl (6.3-8.2)
[2020-06-17 13:32] LABS: C-Reactive Protein 6.1 mg/L (0-4)
[2020-06-17 14:32] LABS: Erythrocyte Sedimentation Rate 10 mm/hr (0-30)
[2020-06-23 14:57] LABS: 1,25 Dihydroxy Vitamin D 61 pg/mL (.); 1,25-Dihydroxy, Vitamin D-2 <10 pg/mL (.); 1,25-Dihydroxy, Vitamin D-3 61 pg/mL (.)
== END ==
PROVIDERS: Visit Provider Podiatrist
DX: R73.9 Hyperglycemia, unspecified; M25.571 Pain in right ankle and joints of right foot; M87.071 Idiopathic aseptic necrosis of right ankle; M19.071 Primary osteoarthritis, right ankle and foot; Z68.33 Body mass index [BMI] 33.0-33.9, adult
CPT/HCPCS: 36415; 80053; 82652; 83036; 85025; 85651; 86140

== ENCOUNTER → 2020-09-14 16:04 | Outpatient (CLI) | payer MEDICARE, SELFPAY ==
--- NOTE | 2020-09-14 16:22 | XR_ITS ---
PROCEDURE: XR CHEST 2V CLINICAL HISTORY: HYPERTENSION COMPARISON: No exams were available for comparison FINDINGS: The cardiomediastinal silhouette and pulmonary vascularity are within normal limits. The lungs are clear without infiltrates, suspicious nodules, or pleural effusions. No acute bony abnormalities. IMPRESSION: No acute findings. Dictated by: Simon Ca MD 09/14/2020 17:08 Simon Ca MD in [place] 09/14/2020 17:08
--- NOTE | 2020-09-14 16:38 | ECG_ITS ---
APPROVED REPORT Exam: Resting ECG HR:79 bpm ECG Measurements Heart Rate 79 AXES AL 176 P 38 QRSd 70 QRS 18 QT 380 T 40 QTc 435 Conclusion Normal sinus rhythm Late r wave progression Abnormal ECG Electronically signed by : Mathew Funes, 09/18/2020 07:34:31
[2020-09-14 17:18] LABS: Alanine Aminotransferase 42 U/L (12-78); Albumin Level 4.9 g/dl (3.5-5.0); Albumin/Globulin Ratio 1.7 (1.1-1.8); Alkaline Phosphatase 117 U/L (38-126); Anion Gap 14.2 mEq/L (5-15); Aspartate Amino Transferase 34 U/L (14-36); Bilirubin,Total 0.7 mg/dl (0.2-1.3); Blood Urea Nitrogen 10 mg/dl (7-17); Calcium 9.7 mg/dl (8.4-10.2); Carbon Dioxide 28 mmol/L (22.0-30.0); Chloride 100 mmol/L (98-107); Estimated Glomerular Filt Rate 105 ml/min (>60); GFR (African American) 127 ML/MIN (>60); Globulin 2.9 g/dL (1.3-3.2); Glucose 105 mg/dl (74-100); Potassium 4.2 mmoL/L (3.5-5.1); Sodium 138 mmol/L (136-145); Total Protein,Serum 7.8 g/dl (6.3-8.2)
[2020-09-14 17:23] LABS: C-Reactive Protein 14.6 mg/L (0-4)
[2020-09-14 17:35] LABS: 25-OH Vitamin D, Total 51.2 ng/mL (30-100)
[2020-09-14 17:39] LABS: Hemoglobin A1C 5.9 % (4.0-6.0)
[2020-09-14 18:06] LABS: Basophils # 0.1 K/mm3 (0-0.2); Basophils % 0.7 % (0.1-2.0); Eosinophils # 0.2 K/mm3 (0.0-0.4); Eosinophils % 1.6 % (0.1-12.0); Hematocrit 44.9 % (37.0-47.0); Hemoglobin 14.7 g/dL (12.2-16.2); Lymphocytes # 3.4 K/mm3 (0.7-4.5); Lymphocytes % 22.8 % (10-50); Mean Corpuscular HGB Conc 32.8 g/dL (31.8-35.4); Mean Corpuscular Hemoglobin 27.1 pg (27.0-31.2); Mean Corpuscular Volume 82.5 fl (81-99); Mean Platelet Volume 7.4 fl (7.4-10.4); Monocytes # 0.7 K/mm3 (0.1-1.0); Monocytes % 4.8 % (1.7-9.3); Neutrophils # 10.4 K/mm3 (1.8-7.8); Neutrophils % 70.1 % (37.0-80.0); Platelet Count 405 K/mm3 (142-424); Red Blood Count 5.44 M/mm3 (4.20-5.40); Red Cell Distribution Width 12.8 % (11.5-17.5); White Blood Count 14.8 K/mm3 (4.8-10.8)
== END ==
PROVIDERS: Visit Provider Podiatrist
DX: Z01.818 Encounter for other preprocedural examination (principal); I10 Essential (primary) hypertension; R73.03 Prediabetes; E66.9 Obesity, unspecified; Z68.33 Body mass index [BMI] 33.0-33.9, adult; M25.571 Pain in right ankle and joints of right foot
CPT/HCPCS: 36415; 71046; 80053; 82306; 83036; 85025; 86140; 93005

== ENCOUNTER 2020-11-17 06:30 | Observation (INO) | payer MEDICARE, SELFPAY ==
[2020-11-11 11:04] VITALS: BMI 33.1
[2020-11-17] VITALS (23 sets, daily range): BP systolic 117–172; BP diastolic 67–97; PULSE 76–132; RESP 14–18; TEMP 36.2–43; O2SAT 91–100; BMI 34.1
[2020-11-17 07:10] LABS: POC Glucose,Bedside 127 (70-110)
--- NOTE | 2020-11-17 07:13 | HMH.HP ---
*Admission Date: 11/17/20 *Chief complaint: R ankle arthritis *History of present illness: Patient is a 55-year-old female who presents with continued right ankle pain. She presents from [place] for right ankle reconstructive surgery. She did have surgery 12/11/17: Right medial malleolus cutdown osteotomy, debridement of talus OCD, allograft talus, open repair of talus fracture, primary open deltoid ligament repair, ankle arthrotomy, ankle synovectomy. PCP-Dr. Leona Pleitez: granted medical clearance for surgery (abnormal labs, has PFT scheduled for 09/21/20) and cardiac clearance granted-Dr. Melyssa Peguero. Cardiology: [place]. She will be admitted s/p right total ankle replacement. [facility] History I have reviewed the patient's past medical history: Yes Medical History: Reports:: Anxiety, Cerebrovascular Accident, Depression, Gastroesophageal Reflux Disease(GERD), Hypertension Denies:: Cancer, Diabetes Mellitus Type 1, Diabetes Mellitus Type 2, Internal Pacemaker, MRSA, Seizures *Have you ever received a pneumonia vaccine?: Yes *Have you received a flu vaccine this season?: Yes Other Medical History: Reports: Other. Denies: Blood Transfusion Reaction Laterality Cases: Left: Arthroscopy Shoulder Other Surgeries: Yes: Cholecystectomy, Hysterectomy-Total. No: Pacemaker Amputation: No Fractures: Yes - *Social History Last grade of school completed: Advanced degree Smoking Status: Never smoker Alcohol Intake: current Alcohol Intake Frequency:: holidays/special occasions only *Occupational Status:: previously employed Housing: house Household Members: spouse *Travel in the last 8 weeks: Inside the [facility] - Psychiatric History Pschychiatric History:: Reports:: Anxiety, Depression Family Hx:: Coronary Artery Disease, Diabetes, Heart Attack, Hyperlipidemia, Hypertension, Kidney Disease Review of Systems - Review of Systems Review of systems:: pertinent systems reviewed and negative unless documented below - Constitutional Denies chills, Denies weakness - Eyes Denies blind spots - ENT Denies abnormal hearing - *Cardiovascular Denies chest pain, Denies shortness of breath - *Respiratory Denies shortness of breath - *Gastrointestinal Denies abdominal pain - *Genitourinary Denies abnormal periods - *Musculoskeletal Reports limited joint movement (right ankle) - Integumentary/Breasts Denies hair loss, Denies skin ulcer - *Neurologic Reports localized weakness (right ankle) - Psychiatric Denies abnormal sleep pattern - Endocrine Denies cold intolerance - Hematologic/Lymphatic Denies easy bleeding - Allergic/Immunologic Denies GI upset with certain foods Meds Home Medications Medication Instructions Recorded Confirmed Type pantoprazole 40 mg tablet,delayed 40 mg PO HS 11/06/17 11/17/20 History release Docusate Calcium 240 mg PO DAILY 12/11/17 11/17/20 History quetiapine 25 mg tablet 25 mg PO DAILY 07/01/19 11/17/20 History venlafaxine 75 mg capsule,extended 150 mg PO DAILY 07/01/19 11/17/20 History release 24 hr hydrochlorothiazide 12.5 mg tablet 12.5 mg PO DAILY 09/23/19 11/17/20 History levocetirizine 5 mg tablet 5 mg PO DAILY 02/09/20 11/17/20 History lysine HCl 500 mg tablet 1,000 mg PO DAILY tab 02/09/20 11/17/20 History telmisartan 80 mg tablet 80 mg PO DAILY tab 02/09/20 11/17/20 History atorvastatin 20 mg tablet 20 mg PO DAILY tab 09/14/20 11/17/20 History meloxicam 7.5 mg tablet 7.5 mg PO BID tab 09/14/20 11/17/20 History Cholecalciferol (Vitamin D3) 1,250 mcg PO WEEKLY 11/11/20 11/17/20 History [Vitamin D3 50,000 unit Cap] Allergies Allergy/AdvReac Type Severity Reaction Status Date / Time duloxetine [From Cymbalta] Allergy Verified 11/17/20 06:31 Penicillins Allergy Verified 11/17/20 06:31 Exam Vital signs and Labs for Last 24 Hours: Temp Pulse Resp BP Pulse Ox 97.1 F L 76 18 146/75 H 98 11/17/20 06:36 11/17/20 06:36 11/17
--- NOTE | 2020-11-17 08:11 | HMH.ANESCL ---
[facility] Anesthesia Checklist - Structural Data Admitted From: Home Planned Operative Procedure/s: r total ankle Consent for Planned Operative Procedure(s) Verified: Yes - Additional verifications Anesthesia Reactions: Yes (nausea) Hx Blood Transfusions: No Blood Transfusion Reaction: No - Airway Assessment C-Spine Mobility Assessed: Yes TMJ Mobility Assessed: Yes Dentition: Good Dentition - Neurological Assessment Level of Consciousness: Awake, Alert, Appropriate - Anesthesia Plan Anesthesia Risk discussed: Yes Anesthesia Plan: Verified ASA Class: II Anesthesia Type: General w/block - Preoperative Comments Pre-Operative Comments: pt rrquests nerve block had it last time and it was great . proc exp to pt [facility] History I have reviewed the patient's past medical history: Yes Medical History: Reports:: Anxiety, Cerebrovascular Accident, Depression, Gastroesophageal Reflux Disease(GERD), Hypertension Denies:: Cancer, Diabetes Mellitus Type 1, Diabetes Mellitus Type 2, Internal Pacemaker, MRSA, Seizures *Have you ever received a pneumonia vaccine?: Yes *Have you received a flu vaccine this season?: Yes Other Medical History: Reports: Other. Denies: Blood Transfusion Reaction Anesthesia experience/problems:: none Laterality Cases: Left: Arthroscopy Shoulder Other Surgeries: Yes: Cholecystectomy, Hysterectomy-Total. No: Pacemaker Amputation: No Fractures: Yes - *Social History Last grade of school completed: Advanced degree Smoking Status: Never smoker Alcohol Intake: current Alcohol Intake Frequency:: holidays/special occasions only Substance Use Type: denies use *Occupational Status:: previously employed Housing: house Household Members: spouse *Travel in the last 8 weeks: Inside the [place] - Psychiatric History Pschychiatric History:: Reports:: Anxiety, Depression Family Hx:: Coronary Artery Disease, Diabetes, Heart Attack, Hyperlipidemia, Hypertension, Kidney Disease
--- NOTE | 2020-11-17 12:07 | SUR.OPER ---
0809- pt's family was updated of their current status via priscila conde.
--- NOTE | 2020-11-17 12:48 | SUR.OPER ---
1244- pt's family has been updated of the status via priscila conde
--- NOTE | 2020-11-17 13:40 | XR_ITS ---
PROCEDURE: XR ANKLE RT 2V CLINICAL INDICATION: ANKLE ARTHROSCOPY COMPARISON: CR XR ANKLE COMP MIN 3 VIEWS RIGHT from 03/26/2018 CR [id number] XR ankle wt bearing RT min 3V from 06/25/2018 CR XR ANKLE WT BEARING RT MIN 3V from 03/04/2019 CR XR ANKLE WT BEARING RT MIN 3V from 07/01/2019 FINDINGS: Fluoroscopy time: 2 minutes and 1 second AP and lateral views are obtained following ankle replacement demonstrating good alignment with C-arm images. Other findings:None. IMPRESSION: Good alignment status post right ankle replacement Dictated by: Simon Ca MD 11/17/2020 13:54 Simon Ca MD in [place] 11/17/2020 13:54
--- NOTE | 2020-11-17 14:52 | HMH.ANESI ---
[facility] Anesthesia Record Part I Intake, IV Amount: 3,000 Estimated blood loss (mL): 150 Urine output (mL): 1,400 Blood Pressure: 150/85 SaO2: 91 Pulse Rate: 127 Respiratory Rate: 14 Temperature: 98.3 F Patient is:: Awake, Stable Stable to PACU at:: 14:45
[2020-11-17 15:01] LABS: POC Glucose,Bedside 172 (70-110)
[2020-11-17 15:07] LABS: Microscopic,Cath URINE MICROSCOPIC (MICROSCOPIC)
--- NOTE | 2020-11-17 15:08 | HMH.OPNOTE ---
Date of procedure: 11/17/20 Pre-op Diagnosis:: 1. Right ankle instability 2. Osteoarthritis of right ankle and foot 3. Osteochondritis dissecans of right talus 4. Gastrocnemius equinus of right lower extremity 5. Peroneal tendinitis, right leg 6. Avascular necrosis of bone of foot 7. Synovitis of right ankle 8. Impingement of right ankle joint 9. Osteopenia of right ankle 10. Obesity (BMI 30.0-34.9) Post-op Diagnosis:: Same Procedure performed:: 1. Right total ankle arthroplasy/replacement 2. Right hardware removal 3. Right modified Brostr?m ankle ligament repair 4. Right peroneal tenosynovectomy 5. Right ankle synovectomy 6. Right gastrocnemius recession 7. Right repair of artery 8. Graft application 9. Application of Prevana incision vac 10. Application of posterior splint Surgeon:: Michelle Peterson DPM Exterior Designer(s):: Elly Fraser MOTOR RACER:: Home Pleitez Anesthesia: GETA, regional (Right popliteal, saph block), local (Right ankle block) Estimated blood loss (mL): 50 Clinical Note:: Patient is a 55-year-old female who underwent surgery over 1.5 years ago after sustaining a twisting injury which resulted in chronic ankle instability and a talus osteochondral lesion. There has been progressive pain weakness and instability to the right ankle. We discussed failed conservative care: including, modification of shoe gear, modification of activity, ice, elevation, bracing/strapping/taping, immobilization and fracture boot, formal physical therapy, surgery on 12/11/2017 (Right medial malleolus cutdown osteotomy, debridement of talus OCD, allograft talus, open repair of talus fracture, primary deltoid ligament repair, ankle arthrotomy, ankle synovectomy), cortisone steroid injections and inserts. We discussed surgical intervention, discussed TAR and ankle arthrodesis. She has not had any issues with wound healing or infection to the right ankle in the past. Likely the graft has reabsorbed or is starting to collapse and that is leading to the catching and increased pain and swelling. All risks and benefits were discussed including but not limited to: damage to blood vessels and nerves, bleeding, infection, wound complications, delayed, mal or non-union of bone, post-traumatic arthritis, need for further surgery, implant failure, need for removal of implant, prolonged or permanent swelling of the extremity, prolonged or permanent pain or deformity, CRPS/RSD, DVT/PE, and anesthetic complications including . I explained because of her age, if we proceed with TAR, she may have to have a revision in the future. She will recheck lab work next week with her PCP-Dr. Leona Pleitez. She is not diabetic and has no symptoms of neuropathy. I discussed ankle fusion in detail with the patient as well, if bone quality bone and will not hold implant, will plan for fusion. No guarantees were given. All questions fully answered. The patient verbalized understanding and agreed to proceed with surgery. Consent was obtained. Medical and cardiac clearance granted. Will need pain meds, Zofran, Motrin, and Lovenox for DVT ppx. She does not smoke. Patient has crutches and walker. Operative findings:: Right medial ankle plate and screws removed without complication. No purulence malodor or drainage. No obvious signs of bone infection. Synovitic scar tissue noted throughout the ankle joint. Peroneal tendons had synovitis but no obvious tear or rupture. ATFL attenuated and torn. Sclerotic osteophytes and degenerative changes noted throughout the ankle. Some subchondral bone cysts noted. Poor bone quality at the level of the tibia which necessitated cementing the tibial tray. Due to the revisional nature of the case, hardware removal and degree of osteopenia, subchondral cysts, poor bone quality and nature of the reconstruction this case took 1.5-2 hours longer than normal. Operative note:: On this date and time patient was deemed an appropriate surgical candidate. Pre-op regional popliteal an
[2020-11-17 15:14] LABS: Appearance,Urine/Cath CLEAR (Clear); Bilirubin,Cath Negative (Negative); Blood, Urine/Cath Negative (Negative); Color,Urine/Cath YELLOW (Yellow); Glucose,Urine/Cath (UA) Negative (Negative); Ketones,Urine/Cath Negative (Negative); Leukocyte Esterase,Cath Negative (Negative); Nitrate,Cath Negative (Negative); Protein,Urine/Cath Negative (Negative); Specific Gravity, Urine/Cath 1.025 (1.005-1.030); Urobilinogen,Cath 0.2 EU/dl (0.2)
[2020-11-17 15:23] LABS: Bacteria,Urine/Cath TRACE /lpf
--- NOTE | 2020-11-17 15:57 | PC.NURSE ---
1500: Lashell Pleitez CRNA notified of patients elevated HR and BP and skin being diaphoretic. No new orders at this time.
--- NOTE | 2020-11-17 16:02 | PC.NURSE ---
1525: pt. awake and states she is having a hot flash and this is normal for her.
--- NOTE | 2020-11-17 17:55 | HMH.CONS ---
*Admission Date: 11/17/20 *Reason for consult:: Blood pressure follow-up *History of present illness: Patient admitted for complex right ankle repair per podiatry service. Has history of hypertension at home, takes telmisartan and HCTZ, reports that she took the medicine this morning. Past history and anesthesia records reviewed. Patient did have hypertension postoperatively in the PACU, no problems coming off anesthesia and awakened normally. Currently without complaints. [facility] History I have reviewed the patient's past medical history: Yes Medical History: Reports:: Anxiety, Cerebrovascular Accident, Depression, Gastroesophageal Reflux Disease(GERD), Hypertension Denies:: Cancer, Diabetes Mellitus Type 1, Diabetes Mellitus Type 2, Internal Pacemaker, MRSA, Seizures *Have you ever received a pneumonia vaccine?: Yes *Have you received a flu vaccine this season?: Yes Other Medical History: Reports: Other. Denies: Blood Transfusion Reaction Anesthesia experience/problems:: none Laterality Cases: Left: Arthroscopy Shoulder Other Surgeries: Yes: Cholecystectomy, Hysterectomy-Total. No: Pacemaker Amputation: No Fractures: Yes - *Social History Last grade of school completed: Advanced degree Smoking Status: Never smoker Alcohol Intake: current Alcohol Intake Frequency:: holidays/special occasions only Substance Use Type: denies use *Occupational Status:: previously employed Housing: house Household Members: spouse *Travel in the last 8 weeks: Inside the [place] - Psychiatric History Pschychiatric History:: Reports:: Anxiety, Depression Family Hx:: Coronary Artery Disease, Diabetes, Heart Attack, Hyperlipidemia, Hypertension, Kidney Disease Review of Systems - Review of Systems Review of systems:: pertinent systems reviewed and negative unless documented below - *Neurologic Reports localized weakness (right ankle), Denies abnormal hearing, Denies weakness Meds Home Medications Medication Instructions Recorded Confirmed Type pantoprazole 40 mg tablet,delayed 40 mg PO HS 11/06/17 11/17/20 History release Docusate Calcium 240 mg PO DAILY 12/11/17 11/17/20 History quetiapine 25 mg tablet 25 mg PO DAILY 07/01/19 11/17/20 History venlafaxine 75 mg capsule,extended 150 mg PO DAILY 07/01/19 11/17/20 History release 24 hr hydrochlorothiazide 12.5 mg tablet 12.5 mg PO DAILY 09/23/19 11/17/20 History levocetirizine 5 mg tablet 5 mg PO DAILY 02/09/20 11/17/20 History lysine HCl 500 mg tablet 1,000 mg PO DAILY tab 02/09/20 11/17/20 History telmisartan 80 mg tablet 80 mg PO DAILY tab 02/09/20 11/17/20 History atorvastatin 20 mg tablet 20 mg PO DAILY tab 09/14/20 11/17/20 History meloxicam 7.5 mg tablet 7.5 mg PO BID tab 09/14/20 11/17/20 History Cholecalciferol (Vitamin D3) 1,250 mcg PO WEEKLY 11/11/20 11/17/20 History [Vitamin D3 50,000 unit Cap] Allergies Allergy/AdvReac Type Severity Reaction Status Date / Time duloxetine [From Cymbalta] Allergy Verified 11/17/20 06:31 Penicillins Allergy Verified 11/17/20 06:31 Exam Vital signs and Labs for Last 24 Hours: Temp Pulse Resp BP Pulse Ox 98.0 F 114 H 16 155/74 H 95 11/17/20 15:40 11/17/20 15:40 11/17/20 15:40 11/17/20 15:40 11/17/20 15:40 Laboratory Results - last 24 hr 11/17/20 06:57: POC Glucose 127 H 11/17/20 07:50: Urine Color Yellow, Urine Appearance Clear, Urine pH 6.0, Ur Specific [place] 1.025, Urine Protein Negative, Urine Glucose (UA) Negative, Urine Ketones Negative, Urine Blood Negative, Urine Nitrate Negative, Urine Bilirubin Negative, Urine Urobilinogen 0.2, Ur Leukocyte Esterase Negative, Urine RBC None, Urine WBC None, Ur Squamous Epith Cells None, Urine Bacteria Trace 11/17/20 14:52: POC Glucose 172 H I & O for Last 24 hours: Intake & Output 11/15/20 11/16/20 11/17/20 11/18/20 11:59 11:59 11:59 11:59 Intake Total 3000 / 3000 Balance 3000 / 3000 Weight 224 lb 7 oz - Constitutional no acute
--- NOTE | 2020-11-17 19:04 | HMH.DCSUM ---
General - General Admission date:: 11/17/20 Discharge date: 11/18/20 HPI HPI: Patient is a 55-year-old female who presents with continued right ankle pain. She presents from [place] for right ankle reconstructive surgery. She did have surgery 12/11/17: Right medial malleolus cutdown osteotomy, debridement of talus OCD, allograft talus, open repair of talus fracture, primary open deltoid ligament repair, ankle arthrotomy, ankle synovectomy. PCP-Dr. Leona Pleitez: granted medical clearance for surgery (abnormal labs, has PFT scheduled for 09/21/20) and cardiac clearance granted-Dr. Melyssa Peguero. Cardiology: [place], [place]. She will be admitted s/p right total ankle replacement. Hospital Course Hospital Course: Patient had was hypertensive in recovery. She was stable upon transfer to the floor and had an uneventful postoperative course overnight. She reports some nausea controlled with Zofran. Reports pain control, block has not worn off. Patient did have elevated white count this morning likely secondary to atelectasis. No fever chills, vomiting, shortness of breath or chest pain. She does have decreased inspiration with incentive spirometer and coughs on attempt. Discussed in detail postoperative pneumonia and atelectasis. Objective Vital signs: Temp Pulse Resp BP Pulse Ox 97.9 F 97 H 18 139/87 94 L 11/17/20 18:00 11/17/20 18:00 11/17/20 18:00 11/17/20 18:00 11/17/20 18:00 no acute distress, obese - *Routine HEENT Exam Head: Present: normocephalic Eye: Present: EOMI ENT: Present: mucous membranes moist - *Routine Neck Exam Present: supple - *Routine Respiratory Exam Present: accessory muscle use, CTA bilaterally. Absent: prolonged expiratory phase - *Routine Cardiovascular Exam Present: RRR - *Routine Abdominal Exam Present: soft, obese - *Routine Rectal Exam Patient deferred: visual exam - *Routine Exam Patient deferred: external exam - *Routine Extremities Exam Present: pulses intact, normal capillary refill. Absent: calf tenderness - *Routine Skin Exam Present: intact - *Routine Neurological Exam Present: alert, oriented X3 - Detailed Lower Extremity Exam Comments: RLE splint and Prevana wound vac are clean dry and intact. CFT wnl. Motor function, light touch sensation decreased secondary to regional nerve block. No calf or thigh pain noted b/l. Results Labs on day of discharge: Labs from last 24 hours 11/17/20 11/17/20 11/17/20 14:52 07:50 06:57 POC Glucose 172 H 127 H Urine Color Yellow Urine Appearance Clear Urine pH 6.0 Ur Specific [place] 1.025 Urine Protein Negative Urine Glucose (UA) Negative Urine Ketones Negative Urine Blood Negative Urine Nitrate Negative Urine Bilirubin Negative Urine Urobilinogen 0.2 Ur Leukocyte Esterase Negative Urine RBC None Urine WBC None Ur Squamous Epith Cells None Urine Bacteria Trace DS: Diagnosis - Discharge Diagnosis (1) Primary osteoarthritis, right ankle and foot Status: Acute (2) Hypertension Status: Acute (3) Right ankle pain Status: Acute (4) Synovitis of right ankle Status: Acute (5) Impingement of right ankle joint Status: Chronic (6) Obesity (BMI 30.0-34.9) Status: Chronic (7) Osteochondritis dissecans of right talus Status: Chronic (8) Right ankle instability Status: Chronic Discharge Plan - Patient Discharge Instructions ACTIVITY: Limited activity DIET: advance to your usual diet Additional Instructions: Admit for 23 hour observation for pain control, med mgmt blood pressure. Patient is to maintain splint clean dry and intact. Polar pack/ice behind the knee and elevate on foam ramp or two pillows. Non weight bearing with crutches and walker. Recommend RKS. Meds to bed. e-Rx given for Percocet 7.5/325, Zofran, Lovenox, Toradol, Valium, Motrin 800mg. Needs crutches and Preva
--- NOTE | 2020-11-17 19:07 | XR_ITS ---
PROCEDURE INFORMATION: Exam: XR Right Ankle Exam date and time: 11/17/2020 7:07 PM Age: 55 years old Clinical indication: Screening exam; Post op; Prior surgery; Surgery date: Post-operative (0-2 days); Surgery type: Tar; Additional info: Post op tar TECHNIQUE: Imaging protocol: XR Right ankle. Views: 3 or more views. COMPARISON: SD XR ANKLE RT 2V 11/17/2020 1:30 PM FINDINGS: Status post total ankle replacement. There is casting material and an electronic device overlying the patient's lower extremity limiting evaluation of the underlying structures. Alignment appears grossly physiologic. No visualized acute fracture or dislocation. IMPRESSION: Status post total ankle replacement as above.
[2020-11-18] VITALS (7 sets, daily range): BP systolic 122–155; BP diastolic 67–78; PULSE 69–114; RESP 16–20; TEMP 36.5–36.7; O2SAT 96–98; BMI 34.5
--- NOTE | 2020-11-18 04:02 | PC.NURSE ---
pt is alert and oriented. iv patent. vss. pt reports no pain at this time. nausea x1 prn med given with relief. dressing to RLE intact. polar pack in place. hope draining clear yellow urine. call light in reach.will continue to monitor
[2020-11-18 06:29] LABS: Basophils % 0.1 % (0.1-2.0); Lymphocytes # 1.6 K/mm3 (0.7-4.5); Lymphocytes % 7.6 % (10-50); Mean Corpuscular HGB Conc 32.2 g/dL (31.8-35.4); Mean Corpuscular Hemoglobin 26.8 pg (27.0-31.2); Mean Corpuscular Volume 83.4 fl (81-99); Mean Platelet Volume 7.6 fl (7.4-10.4); Monocytes # 1.4 K/mm3 (0.1-1.0); Monocytes % 6.5 % (1.7-9.3); Neutrophils # 18.1 K/mm3 (1.8-7.8); Neutrophils % 85.8 % (37.0-80.0); Platelet Count 347 K/mm3 (142-424); Red Blood Count 4.08 M/mm3 (4.20-5.40); Red Cell Distribution Width 13.6 % (11.5-17.5); White Blood Count 21.1 K/mm3 (4.8-10.8)
[2020-11-18 06:33] LABS: MANUAL DIFFERENTIAL MANUAL DIFFERENTIAL (MANUAL DIFF)
[2020-11-18 06:44] LABS: Alanine Aminotransferase 40 U/L (12-78); Albumin Level 3.6 g/dl (3.5-5.0); Albumin/Globulin Ratio 1.4 (1.1-1.8); Alkaline Phosphatase 90 U/L (38-126); Anion Gap 10.1 mEq/L (5-15); Aspartate Amino Transferase 39 U/L (14-36); Bilirubin,Total 0.5 mg/dl (0.2-1.3); Blood Urea Nitrogen 11 mg/dl (7-17); Calcium 8.4 mg/dl (8.4-10.2); Carbon Dioxide 30 mmol/L (22.0-30.0); Chloride 102 mmol/L (98-107); Creatinine Clearance Estimated 177 mL/min (50-200); Estimated Glomerular Filt Rate 105 ml/min (>60); GFR (African American) 127 ML/MIN (>60); Globulin 2.6 g/dL (1.3-3.2); Glucose 139 mg/dl (74-100); Potassium 4.1 mmoL/L (3.5-5.1); Sodium 138 mmol/L (136-145); Total Protein,Serum 6.2 g/dl (6.3-8.2)
[2020-11-18 07:03] LABS: Lymphocytes % 6 % (10-50); Monocytes % 3 % (2-9); Neutrophils % 91 % (42-76); Total Cells Counted 100
[2020-11-18 07:04] LABS: Platelet Estimate Normal; RBC Morphology Normal
--- NOTE | 2020-11-18 07:11 | HMH.PHAVTE ---
[facility] Pharmacy VTE Monitoring - Patient Demographics Admission date: 11/17/20 Report Date: 11/18/20 Time: 07:11 Allergies/Adverse Reactions: Patient Allergies duloxetine [From Cymbalta] Allergy (Verified 11/17/20 06:31) Penicillins Allergy (Verified 11/17/20 06:31) Height: 1.73 m Weight: 103.419 kg Patient Problems: Current Active Problems Right ankle pain (Acute) Synovitis of right ankle (Acute) Hypertension (Acute) Primary osteoarthritis, right ankle and foot (Acute) Obesity (BMI 30.0-34.9) (Chronic) Right ankle instability (Chronic) Osteochondritis dissecans of right talus (Chronic) Impingement of right ankle joint (Chronic) - VTE Risk Labs: VTE Related Lab Results Hgb 11.0 g/dL (12.2-16.2) L 11/18/20 05:09 Hct 34.0 % (37.0-47.0) L 11/18/20 05:09 Plt Count 347 K/mm3 (142-424) 11/18/20 05:09 BUN 11 mg/dl (7-17) 11/18/20 05:09 Creatinine 0.60 mg/dl (0.52-1.04) 11/18/20 05:09 Estimated Creat Clear 177 mL/min (50-200) 11/18/20 05:09 Was VTE Risk Assessment Performed: Yes VTE Score: 2 VTE Risk Level: Very Low Risk Clinical Trial Participant: No - Prophylaxis VTE Prophylaxis Ordered?: Yes Types of VTE Prophylaxis: IPCS Knee High, Pharmacological Pharmacologic Type: Enoxaparin
--- NOTE | 2020-11-18 10:58 | HMH.PHAINT ---
DISCHARGE MEDICATION COUNSELING COMPLETED - PT ASKED WHY THE HCTZ WAS STOPPED. EVELINA (STUDENT) RELAYED PT CONCERN TO NURSE WHO WAS FOLLOWING UP WITH MD TO CLARIFY. NO FURTHER QUESTIONS ENDORSED AT THIS TIME.
--- NOTE | 2020-11-18 11:07 | HMH.ANESII ---
[facility] Anesthesia Record Part II Discharge Time: 15:40 Destination: Medical Surgical Department PACU nurse assessment reviewed?: Yes Patient Condition:: Good Anesthesia Complications:: None Swallowing reflex intact?: Yes Cyanosis?: No Blood Pressure: 155/74 Pulse Rate: 114 Temperature: 98 F Mental Status: Alert & Oriented Pain level:: 0 Nausea and/or vomitting:: None Intake, IV Amount: 0
== END 2020-11-18 13:50 | disposition home or self-care (01) ==
LOC: 2ND 06:31
PROVIDERS: Admitting Provider Podiatrist; PCP Podiatrist; Visit Provider Podiatrist
PROC: (CPT 27626; principal; 2020-11-17 07:30)
DX: T84.84XA Pain due to internal orthopedic prosthetic devices, implants and grafts, initial encounter (principal); M25.571 Pain in right ankle and joints of right foot; M24.571 Contracture, right ankle; M19.071 Primary osteoarthritis, right ankle and foot; M25.371 Other instability, right ankle; I10 Essential (primary) hypertension; M65.9 Synovitis and tenosynovitis, unspecified; E66.9 Obesity, unspecified; M67.01 Short Achilles tendon (acquired), right ankle; M93.971 Osteochondropathy, unspecified, right ankle and foot; Z79.899 Other long term (current) drug therapy; E55.9 Vitamin D deficiency, unspecified; Z68.34 Body mass index [BMI] 34.0-34.9, adult; Y83.1 Surgical operation with implant of artificial internal device as the cause of abnormal reaction of the patient, or of later complication, without mention of misadventure at the time of the procedure; Z86.73 Personal history of transient ischemic attack (TIA), and cerebral infarction without residual deficits; F41.9 Anxiety disorder, unspecified; R11.0 Nausea; M21.6X1 Other acquired deformities of right foot
CPT/HCPCS: 27703; 15275; 27626; 27698; G0378; 73600; 73610; 76000; 80053; 81001; 82962; 85007; 85025; 88305; 96374; 97162; C1713; C1762; C1776; J2405; Q4211

== ENCOUNTER → 2021-01-04 13:56 | Outpatient (CLI) | payer MEDICARE, SELFPAY ==
--- NOTE | 2021-01-04 14:01 | XR_ITS ---
PROCEDURE: XR ANKLE WT BEARING RT MIN 3V CLINICAL INDICATION: postop views COMPARISON: CR XR ANKLE WT BEARING RT MIN 3V from 03/04/2019 CR XR ANKLE WT BEARING RT MIN 3V from 07/01/2019 CR XR ANKLE RT 2V from 11/17/2020 CR XR ANKLE RT MIN 3V from 11/17/2020 FINDINGS: Status post left ankle replacement with good alignment. Lucencies are present at the distal tibia consistent with prior hardware removal. Walters screw is present at the distal fibula. IMPRESSION: Good alignment status post ankle replacement Dictated by: Simon Ca MD 01/04/2021 14:30 Simon Ca MD in [place] 01/04/2021 14:30
== END ==
PROVIDERS: Visit Provider Podiatrist
DX: Z96.661 Presence of right artificial ankle joint (principal); Z98.890 Other specified postprocedural states; M19.071 Primary osteoarthritis, right ankle and foot; T81.31XD Disruption of external operation (surgical) wound, not elsewhere classified, subsequent encounter
CPT/HCPCS: 73610

== ENCOUNTER → 2021-01-25 14:53 | Outpatient (CLI) | payer MEDICARE, SELFPAY ==
--- NOTE | 2021-01-25 15:00 | XR_ITS ---
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 No significant change with no obvious orthopedic complications. An anchor screw is present at the distal fibula and there lucencies in the distal tibia from prior hardware removal. IMPRESSION: Good alignment status post tibial talar joint replacement Dictated by: Simon Ca MD 01/25/2021 15:29 Simon Ca MD in [facility] 01/25/2021 15:29
== END ==
PROVIDERS: Visit Provider Podiatrist
DX: Z98.890 Other specified postprocedural states (principal); M19.071 Primary osteoarthritis, right ankle and foot
CPT/HCPCS: 73610

== ENCOUNTER → 2021-03-08 13:17 | Outpatient (CLI) | payer MEDICARE, SELFPAY ==
--- NOTE | 2021-03-08 13:22 | XR_ITS ---
PROCEDURE: XR ANKLE WT BEARING RT MIN 3V CLINICAL INDICATION: postop views COMPARISON: CR XR ANKLE RT 2V from 11/17/2020 CR XR ANKLE RT MIN 3V from 11/17/2020 CR XR ANKLE WT BEARING RT MIN 3V from 01/04/2021 CR XR ANKLE WT BEARING RT MIN 3V from 01/25/2021 FINDINGS: No change status post ankle joint replacement with good alignment and no evidence of orthopedic complications. Lucency once again noted in the medial aspect of the distal tibia not significantly changed. [place] screw noted in the distal fibula unchanged. Screw hose are present in the distal tibia from old prosthesis. IMPRESSION: Good alignment status post ankle joint replacement Dictated by: Simon Ca MD 03/08/2021 14:04 Simon Ca MD in [facility] 03/08/2021 14:04
== END ==
PROVIDERS: Visit Provider Podiatrist
DX: Z96.661 Presence of right artificial ankle joint (principal); Z98.890 Other specified postprocedural states; M25.571 Pain in right ankle and joints of right foot
CPT/HCPCS: 73610

== ENCOUNTER → 2021-05-23 13:45 | Outpatient (CLI) | payer MEDICARE, SELFPAY ==
--- NOTE | 2021-05-23 13:48 | XR_ITS ---
FINAL REPORT CLINICAL HISTORY: postop views COMPARISON: March 08, 2021 FINDINGS: RIGHT ANKLE: Three weight-bearing views of the right ankle were obtained. There is no acute fracture or dislocation. There are postoperative changes from total ankle arthroplasty. There are postoperative changes in the lateral malleolus. The bony alignment is normal. There is a plantar calcaneal spur. Soft tissue swelling persists. IMPRESSION: Stable postoperative changes. Reviewed, Interpreted and Dictated by Marlon Velasquez III, MD Transcribed by Leisa Nichole Authenticated by Marlon Velasquez III, MD on 05/23/2021 03:09:43 PM [facility]
== END ==
PROVIDERS: Visit Provider Podiatrist
DX: Z96.661 Presence of right artificial ankle joint (principal); Z98.890 Other specified postprocedural states; M25.571 Pain in right ankle and joints of right foot
CPT/HCPCS: 73610

== ENCOUNTER → 2022-01-31 13:33 | Outpatient (CLI) | payer MEDICARE, SELFPAY ==
--- NOTE | 2022-01-31 13:43 | XR_ITS ---
FINAL REPORT CLINICAL HISTORY: pain COMPARISON: 05/23/2021 FINDINGS: Right ankle Three views were obtained. There is no acute fracture or dislocation. There are postoperative changes from tibiotalar arthroplasty. There are postoperative changes of the lateral malleolus. Mild degenerative changes are present. There is a plantar calcaneal spur. Soft tissue swelling is seen. IMPRESSION: Degenerative and postoperative changes as above. Reviewed, Interpreted and Dictated by Marlon Velasquez III, MD Transcribed by Christie Panchal Authenticated and [facility]
[2022-01-31 16:09] LABS: Basophils # 0.6 K/mm3 (0-0.2); Basophils % 5.3 % (0.1-2.0); Eosinophils # 0.2 K/mm3 (0.0-0.4); Eosinophils % 1.5 % (0.1-12.0); Hemoglobin 14.4 g/dL (12.2-16.2); Lymphocytes # 2.9 K/mm3 (0.7-4.5); Lymphocytes % 25.7 % (10-50); Mean Corpuscular HGB Conc 27.2 g/dL (31.8-35.4); Mean Corpuscular Hemoglobin 26.5 pg (27.0-31.2); Mean Corpuscular Volume 97.3 fl (81-99); Mean Platelet Volume 23.1 fl (7.4-10.4); Monocytes # 0.5 K/mm3 (0.1-1.0); Monocytes % 4.7 % (1.7-9.3); Neutrophils # 7.6 K/mm3 (1.8-7.8); Neutrophils % 68.1 % (37.0-80.0); Platelet Count 423 K/mm3 (142-424); Red Blood Count 5.45 M/mm3 (4.20-5.40); Red Cell Distribution Width 21.7 % (11.5-17.5); White Blood Count 11.2 K/mm3 (4.8-10.8)
[2022-01-31 16:15] LABS: Chloride 98 mmol/L (98-107); Potassium 3.7 mmoL/L (3.5-5.1); Sodium 139 mmol/L (136-145)
[2022-01-31 16:17] LABS: Alanine Aminotransferase 48 U/L (12-78); Aspartate Amino Transferase 41 U/L (14-36); Blood Urea Nitrogen 13 mg/dl (7-17); Estimated Glomerular Filt Rate 104 ml/min (>60); GFR (African American) 126 ML/MIN (>60)
[2022-01-31 16:18] LABS: Albumin Level 4.9 g/dl (3.5-5.0); Albumin/Globulin Ratio 1.6 (1.1-1.8); Alkaline Phosphatase 163 U/L (38-126); Anion Gap 17.7 mEq/L (5-15); Calcium 9.6 mg/dl (8.4-10.2); Carbon Dioxide 27 mmol/L (22.0-30.0); Globulin 3.1 g/dL (1.3-3.2); Glucose 150 mg/dl (74-100)
[2022-01-31 16:20] LABS: Bilirubin,Total 0.1 mg/dl (0.2-1.3)
[2022-01-31 16:23] LABS: C-Reactive Protein 9.3 mg/L (0-4)
[2022-01-31 17:38] LABS: Erythrocyte Sedimentation Rate 5 mm/hr (0-30)
[2022-02-10 20:18] LABS: 1,25 Dihydroxy Vitamin D 63 pg/mL (.); 1,25-Dihydroxy, Vitamin D-2 <10 pg/mL (.); 1,25-Dihydroxy, Vitamin D-3 63 pg/mL (.)
== END ==
PROVIDERS: Visit Provider Podiatrist
DX: M19.071 Primary osteoarthritis, right ankle and foot (principal); M25.371 Other instability, right ankle; M25.571 Pain in right ankle and joints of right foot; R73.03 Prediabetes
CPT/HCPCS: 36415; 73610; 80053; 82652; 85025; 85651; 86140

== ENCOUNTER → 2022-05-09 12:42 | Outpatient (CLI) | payer MEDICARE, SELFPAY ==
--- NOTE | 2022-05-09 12:57 | XR_ITS ---
FINAL REPORT CLINICAL HISTORY: ankle pain FINDINGS: AP, oblique, and lateral views of the right ankle were obtained. Comparison is made to an exam dated January 2022. There has been tibiotalar joint replacement. Hardware stable. There is no fracture or dislocation. There is stable mild soft tissue edema. IMPRESSION: No acute osseous abnormality of the right ankle. Reviewed, Interpreted and Dictated by Annmarie Petersen MD Transcribed by Martín Goldsmith Authenticated and [facility]
--- NOTE | 2022-05-09 12:57 | XR_ITS ---
FINAL REPORT CLINICAL HISTORY: foot pain FINDINGS: AP, oblique and lateral views of the right foot were obtained. There is no prior exam for comparison. There is no acute fracture or dislocation. 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 Soft tissues are normal. IMPRESSION: No acute osseous abnormality of the right foot. Reviewed, Interpreted and Dictated by Annmarie Petersen MD Transcribed by Martín Goldsmith Authenticated and [facility]
== END ==
PROVIDERS: Visit Provider Podiatrist
DX: M25.571 Pain in right ankle and joints of right foot; Z96.661 Presence of right artificial ankle joint; M79.671 Pain in right foot
CPT/HCPCS: 73610; 73630

== ENCOUNTER → 2022-11-06 12:40 | Outpatient (CLI) | payer MEDICARE, SELFPAY ==
--- NOTE | 2022-11-06 12:49 | XR_ITS ---
FINAL REPORT CLINICAL HISTORY: Right ankle pain COMPARISON: 05/09/2022 FINDINGS: AP, oblique, and lateral views of the right ankle were obtained. Again seen are postoperative changes from tibiotalar joint replacement. The hardware appears stable compared to prior. Minimal lucency along the superior margin of the tibial hardware is stable. There is no acute osseous abnormality. There is soft tissue edema, worse laterally. IMPRESSION: Stable postoperative changes. No acute osseous abnormality. Soft tissue edema. Authenticated and [facility]
== END ==
PROVIDERS: Visit Provider Podiatrist
DX: M25.571 Pain in right ankle and joints of right foot (principal)
CPT/HCPCS: 73610

== ENCOUNTER 2023-11-05 13:04 | Outpatient (CLI) | payer MEDICARE, SELFPAY ==
--- NOTE | 2023-11-05 13:10 | XR_ITS ---
FINAL REPORT CLINICAL HISTORY: ankle pain COMPARISON: 11/06/2022 FINDINGS: AP, oblique, and lateral views of the right ankle were obtained. There are changes from ankle arthroplasty. The hardware appears intact and unchanged. There is no fracture or dislocation. The ankle mortise is intact. Soft tissues are unremarkable. IMPRESSION: No acute osseous abnormality of the right ankle. Reviewed, Interpreted and Dictated by Annmarie Petersen MD Transcribed by Pamela Blankenship Authenticated and [facility]
== END 2023-11-05 23:59 | disposition home or self-care (01) ==
PROVIDERS: Visit Provider Podiatrist
DX: M25.571 Pain in right ankle and joints of right foot (principal); G89.29 Other chronic pain; M76.61 Achilles tendinitis, right leg
CPT/HCPCS: 73610